=== PATIENT | male | born 1995 | race Caucasian/White ===

== ENCOUNTER 2018-11-27 15:04 | Emergency (ER) | payer BC ==
[~2018-11-27] VITALS: Ht 177.8 cm; Wt 86.2 kg
[~2018-11-27 15:04] MED LIST: IBUPROFEN 600600 M1; VICODIN 5-5001 EACH PO
[2018-11-27 15:57] LABS: ABSOLUTE EOSINOPHILS 0.1 thou/uL (0.0-0.7); ABSOLUTE LYMPHOCYTES 1.4 thou/uL (0.8-5.3); ABSOLUTE MONOCYTES 0.6 thou/uL (0.0-1.2); ABSOLUTE NEUTROPHILS 2.6 thou/uL (1.6-8.1); BASOPHILS 0.9 %; EOSINOPHILS 1.6 %; HEMATOCRIT 43.6 % (42.0-52.0); HEMOGLOBIN 14.8 gm/dL (14.0-18.0); LYMPHOCYTES 29.6 %; MCH 29.9 pg (26.0-34.0); MCV 88.1 fL (80.0-100.0); MONOCYTES 11.9 %; MPV 7.5 fl. (7.2-11.1); NUCLEATED RBCS 0 /100WBC; PLATELET COUNT* 300 thou/uL (150-400); RBC 4.95 mil/uL (4.50-6.00); RDW-CV 13.2 % (10.5-14.5); WBC 4.6 thou/uL (4.0-11.0)
[2018-11-27 16:24] LABS: ALBUMIN 4.2 g/dL (3.4-5.0); ALKALINE PHOSPHATASE 72 U/L (46-116); ANION GAP 7 mmol/L (7-16); BUN 13 mg/dL (7-18); CALCIUM 8.3 mg/dL (8.5-10.1); CHLORIDE 102 mmol/L (98-107); CO2 31 mmol/L (21-32); GLUCOSE 99 mg/dL (70-99); POTASSIUM 3.9 mmol/L (3.5-5.1); SGOT 18 U/L (15-37); SGPT 38 U/L (30-65); SODIUM 140 mmol/L (136-145); TOTAL BILIRUBIN 0.5 mg/dL (<0.1-1.0); TOTAL PROTEIN 7.2 g/dL (6.4-8.2); TROPONIN-I LEVEL <0.06 ng/mL (<0.06)
[2018-11-27 16:59] LABS: URINE BILIRUBIN NEGATIVE (Negative); URINE BLOOD NEGATIVE (Negative); URINE CLARITY CLEAR; URINE COLOR YELLOW; URINE GLUCOSE-RANDOM NEGATIVE (Negative); URINE KETONES NEGATIVE (Negative); URINE LEUKOCYTES-REFLEX NEGATIVE (Negative); URINE NITRITE-REFLEX NEGATIVE (Negative); URINE PROTEIN NEGATIVE (Negative); URINE SPECIFIC GRAVITY <= 1.005 (1.005-1.030); URINE UROBILINOGEN 0.2 E.U./dl (0.2-1.0)
[2018-11-27 17:07] LABS: AMP/METHAMP Negative (Negative); BARBITURATES Negative (Negative); BENZODIAZEPINES Negative (Negative); COCAINE Negative (Negative); METHADONE Negative (Negative); OPIATES Negative (Negative); PCP Negative (Negative); THC Negative (Negative)
[2018-11-27 17:54] VITALS: BP 125/75
--- NOTE | 2018-11-28 13:48 | EKG ---
[place] [address] ELECTROCARDIOGRAM REPORT Name: SADE ANDRES [facility] [id number] Admission: 11/27/18 Attend Phys: Discharge: 11/27/18 Date of : [birth year] Report #: [id number] THIS REPORT FOR: //name// [facility] ED Test Date: 2018-11-27 Test Time: 15:09:07 Pat Name: SADE ANDRES Department: Room: Gender: M Fruit Canner: MALLY : 1995 Requested By: Kristin Reyes Order Number: [id number] MD: Merlin Carter Measurements Intervals [place] Rate: 60 P: 66 SC: 162 QRS: 40 QRSD: 91 T: 27 QT: 404 QTc: 404 Interpretive Statements Sinus rhythm Baseline wander in lead(s) I,III,aVL No previous ECG available for comparison Electronically Signed On 11-28-2018 13:48:20 CDT by Merlin Carter [email or web address] <ELECTRONICALLY SIGNED> By: Merlin Carter MD, [facility] 11/28/18 1348 1509 1509 Merlin Carter MD, FACC /EPI
== END 2018-11-27 17:54 | disposition home or self-care (01) ==
LOC: M.ERS 15:04
PROVIDERS: Personal Emergency Response Attendant
DX: R00.2 Palpitations (principal); F41.9 Anxiety disorder, unspecified; J45.909 Unspecified asthma, uncomplicated; Z91.013 Allergy to seafood

== ENCOUNTER 2019-04-06 12:16 | Emergency (ER) | payer BC ==
[~2019-04-06] VITALS: Ht 177.8 cm; Wt 83.9 kg
[2019-04-06 12:59] LABS: ABSOLUTE EOSINOPHILS 0.1 thou/uL (0.0-0.7); ABSOLUTE LYMPHOCYTES 1.3 thou/uL (0.8-5.3); ABSOLUTE MONOCYTES 0.5 thou/uL (0.0-1.2); ABSOLUTE NEUTROPHILS 3.7 thou/uL (1.6-8.1); BASOPHILS 0.7 %; EOSINOPHILS 1.5 %; HEMATOCRIT 45.1 % (42.0-52.0); HEMOGLOBIN 15.5 gm/dL (14.0-18.0); LYMPHOCYTES 22.8 %; MCH 29.9 pg (26.0-34.0); MCHC 34.4 g/dL (28.0-37.0); MCV 86.9 fL (80.0-100.0); MONOCYTES 8.5 %; MPV 7.5 fl. (7.2-11.1); NUCLEATED RBCS 0 /100WBC; PLATELET COUNT* 307 thou/uL (150-400); POLYS 66.5 %; RBC 5.19 mil/uL (4.50-6.00); WBC 5.6 thou/uL (4.0-11.0)
[2019-04-06 13:00] LABS: URINE BILIRUBIN NEGATIVE (Negative); URINE BLOOD NEGATIVE (Negative); URINE CLARITY CLEAR; URINE COLOR YELLOW; URINE GLUCOSE-RANDOM NEGATIVE (Negative); URINE KETONES NEGATIVE (Negative); URINE LEUKOCYTES-REFLEX NEGATIVE (Negative); URINE NITRITE-REFLEX NEGATIVE (Negative); URINE PROTEIN NEGATIVE (Negative); URINE SPECIFIC GRAVITY <= 1.005 (1.005-1.030); URINE UROBILINOGEN 0.2 E.U./dl (0.2-1.0)
[2019-04-06 13:07] LABS: AMP/METHAMP Negative (Negative); BARBITURATES Negative (Negative); BENZODIAZEPINES Negative (Negative); COCAINE Negative (Negative); METHADONE Negative (Negative); OPIATES Negative (Negative); PCP Negative (Negative); THC Negative (Negative)
[2019-04-06 13:17] LABS: CALCIUM 9.4 mg/dL (8.5-10.1); POTASSIUM 4.4 mmol/L (3.5-5.1)
[2019-04-06 13:27] LABS: ALBUMIN 4.5 g/dL (3.4-5.0); TOTAL BILIRUBIN 0.7 mg/dL (<0.1-1.0); TOTAL PROTEIN 7.5 g/dL (6.4-8.2)
[2019-04-06 14:18] VITALS: BP 116/72
--- NOTE | 2019-04-07 09:24 | EKG ---
[place] [address] ELECTROCARDIOGRAM REPORT Name: SADE ANDRES Room: [facility]#: [id number] Admission: 04/06/19 Attend Phys: Discharge: 04/06/19 Date of : [birth year] Report #: [id number] THIS REPORT FOR: //name// [facility] ED Test Date: 2019-04-06 Test Time: 13:17:14 Pat Name: SADE ANDRES Department: Room: Gender: M Kindergarten Teacher Assistant: ADRIEN : 1995 Requested By: Lisandro Thomas Order Number: [id number] MD: Sam Serna Measurements Intervals [place] Rate: 61 P: 48 UT: 180 QRS: 40 QRSD: 84 T: 18 QT: 384 QTc: 387 Interpretive Statements Sinus rhythm Compared to ECG 11/27/2018 15:09:07 No significant changes Electronically Signed On 04-07-2019 9:24:32 CDT by Sam Serna [email or web address] <ELECTRONICALLY SIGNED> By: Sam Serna MD, [facility] 04/07/19 0924 1317 1317 Sam Serna MD, FACC /EPI
== END 2019-04-06 14:18 | disposition home or self-care (01) ==
LOC: M.ERS 12:16
PROVIDERS: Physician Assistant
DX: R20.0 Anesthesia of skin (principal); R20.2 Paresthesia of skin; R07.89 Other chest pain; J45.909 Unspecified asthma, uncomplicated; Z91.013 Allergy to seafood; Z90.89 Acquired absence of other organs